=== PATIENT | male | born 1960 | race Caucasian/White ===

== ENCOUNTER 2022-04-01 02:52 | Emergency (ER) | payer SELFPAY ==
[2022-04-01 03:03] VITALS: BP 162/92; PULSE 89; RESP 18; TEMP 37; O2SAT 99; BMI 34.1
[2022-04-01 03:14] LABS: Appearance Urine Cloudy (Clear); Bilirubin Urine Negative (Negative); Blood Urine 1+ (Negative); Color Urine Yellow (Yellow); Glucose Urine Negative (Negative); Ketones Urine Negative (Negative); Leukocyte Esterase Urine 1+ (Negative); Nitrite Urine Negative (Negative); Protein Urine Negative (Negative); Urobilinogen Urine 0.2 (0.2-1.0); pH Urine 6.5 (5.0-8.5)
[2022-04-01 03:19] LABS: Bacteria Urine Moderate; WBC Urine 50-100 (0-5)
[2022-04-01] MEDS: LIDOCAINE 1% 5 ml (pf) 5 ML VIAL 2.1 ML IM (03:42)
[2022-04-01] MEDS: cefTRIAXone 1 GM VIAL IM (03:42)
--- OUTSIDE RECORDS SUMMARY | 2022-04-01 03:49 | XMS_ITS | Clinical Summary ---
:1960 Author Organization [employer] [facility] [employer] [facility] [place] [address] Care Team Providers Name Role Phone Antonio Munoz Primary Care Provider Allergies Active Allergy Reactions Severity Noted Date Comments Adhesive Tape-Silicones Rash 08/31/2002 Medications Medication Sig Dispensed Refills Start Date End Date Status carvediloL (COREG) 3.125 TAKE ONE TABLET 0 1 Active mg tablet BY MOUTH TWICE DAILY WITH FOOD aspirin (ECOTRIN) 81 mg Take 81 mg by 0 Active enteric coated tablet mouth. levothyroxine (SYNTHROID) TAKE ONE TABLET 0 01/24/20 20 Active 75 mcg tablet BY MOUTH ONE TIME DAILY hydroCHLOROthiazide TAKE ONE TABLET 0 04/14/2020 Active (HCTZ) 25 mg tablet BY MOUTH ONE TIME DAILY montelukast (SINGULAIR) TAKE ONE TABLET 0 06/16/2020 Active 10 mg tablet BY MOUTH ONE TIME DAILY IN THE EVENING. sildenafil citrate Take 50-100 mg 0 07/31/2020 Active (VIAGRA) 100 mg tablet by mouth. predniSONE (DELTASONE) 20 Take by mouth: 35 Tablet 0 1 Active mg tabletIndications: 3 tablets each Poison arely day for 7 days. Then, take 2 tablets each day for another 7 days. triamcinolone Apply topically 80 g 0 01/06/2021 Active (ARISTOCORT; KENALOG) 0.1 to affected % creamIndications: area(s) 3 times Poison arely daily. Active Problems No known active problems Social History Tobacco Use Types Packs/Day Years Used Date Never Smoker Smokeless Tobacco: Never Used Alcohol Use Standard Drinks/Week Comments Yes 0 (1 standard drink = 0.6 oz pure alcoho l) Sex Assigned at Date Recorded Not on file Obstetrics History Last Filed Vital Signs Vital Sign Reading Time Taken Comments Blood Pressure 137/88 01/06/2021 1:54 PM CDT Pulse 80 01/06/2021 1:54 PM CDT Temperature 37 ??C (98.6 ??F) 01/06/2021 1:54 PM CDT Respiratory Rate 14 01/06/2021 1:54 PM CDT Oxygen Saturation 96% 01/06/2021 1:54 PM CDT Inhaled Oxygen Concentration - - Weight 92.7 kg (204 lb 4.8 oz) 01/06/2021 3:00 PM CDT Height - - Body Mass Index - - Plan of Treatment Health Maintenance Due Date Last Done Comments COVID-19 vaccine series (#1) 06[birth year]01/1962 Tdap 1972 Depression screening for age 12+ 1973 BMI (ht and wt on same day) for age 18+ 11/30/1979 Hepatitis C screening for age 18-79 11/30/1979 Tetanus booster 1981 Colonoscopy through age 75 2006 Lipids for age 45-75 2006 Zoster (shingles) series for age 50+ (1 of 2) 11/30/2011 Influenza for age 50-64 01/28/2022 Results Not on filefrom Last 3 Months Advance Directives Documents on File Type Date Recorded 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
--- NOTE | 2022-04-01 03:53 | ED_ITS ---
HPI - Male Genitourinary General Chief complaint: Flank Pain Stated complaint: UTI Time Seen by Provider: 04/01/22 03:02 Source: patient Mode of arrival: ambulatory Limitations: no limitations History of Present Illness HPI Narrative: 7-year-old male with a notable prior history of urinary retention requiring chronic intermittent catheterization the presents to the emergency department with left-sided flank pain that started about 2 weeks ago, worse tonight. 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 A few days into things, he started taking an old prescription for ciprofloxacin, completing a 7 day course. His symptoms did initially improve somewhat but now have worsened in the last few days. He does not believe the ciprofloxacin was . His last urinary infection was in the spring. In our records, the last documented urinary infection was 2004, no history resistance per his report. No antibiotic allergies. There is no fever, no abdominal pain. He did try taking a stool softener for a few days, as his constipation will occasionally manic is flank pain. He is having regular bowel movements and his symptoms did not improve. No hematuria. No dyspnea, rashes or other unusual symptoms. Remote history of sepsis secondary to urinary infection, he believes this was in 2002. I do not have those records. Past medical history is notable for hypertension, hypothyroidism and chronic urinary retention. Home medications are levothyroxine, hydrochlorothiazide, carvedilol. No allergies. Socially with no recent pertinent travel or infection exposures. ROS is notable for the flank pain urinary symptoms as described above, otherwise denies times 12 Related Data Home Medications Medication Instructions Recorded Confirmed carvedilol 3.125 mg tablet 3.125 mg PO BID 04/01/22 04/01/22 hydrochlorothiazide 25 mg tablet 25 mg PO DAILY 04/01/22 04/01/22 levothyroxine 75 mcg tablet 75 mcg PO DAILY 04/01/22 04/01/22 Previous Rx's Medication Instructions Recorded cephalexin 500 mg tablet 500 mg PO Q8H #15 tabs 04/01/22 Allergies Allergy/AdvReac Type Severity Reaction Status Date / Time No Known Drug Allergies Allergy Verified 04/01/22 03:05 [facility] Medical History Hypertension Hypothyroidism Neurogenic bladder Surgical History History of prostate surgery Social History Smoking Status: Never smoker Do you use any of these nicotine containing products: None Second hand tobacco smoke exposure: No How often do you have a drink containing alcohol: never How often do you have six or more drinks on one occasion: Never AUDIT-C Alcohol total score: 0 Non-prescribed substance use: denies use Exam Const: Vital Signs, click to edit/add: Vital Signs - 24 hr 04/01/22 03:03 Temperature 98.6 F Pulse Rate [Right Pulse Oximeter] 89 Respiratory Rate 18 Blood Pressure [Ri ght Upper Arm] 162/92 H Pulse Oximetry 99 Oxygen Delivery Me thod Room Air Documenting provider has reviewed patient's vital signs: yes Common normals: no apparent distress and alert General appearance: cooperative Orientation/consciousness: Yes awake HENMT: Common normals: normocephalic Head and scalp: normocephalic Mouth: oral and palatal mucosa normal Throat: posterior oropharynx normal Eye: Common normals: conjunctivae normal and no scleral icterus Conjunctiva: conjunctiva(e) normal Neck & C-Spine: Common normals: full ROM and no lymphadenopathy Resp: Common normals: normal respiratory effort, no use of accessory muscles and clear to auscultation bilaterally Effort & inspection: able to speak in complete sentences Auscultation: clear to auscultation bilaterally Cardio: Common normals: regular rate, regular rhythm, S1 normal heart sound, S2 normal heart sound, no murmurs and peripheral pulses 2+ throughout Rate: regular rate Rhythm: regular rhythm Heart sounds: S1 normal and S2 normal Peripheral pulses: pulses 2+ throughout GI: Common normals: Normal to inspection, nondistended, normoactive bowel sounds present, soft to palpation, no hepatosplenomegaly and no masses Palpation: soft and no hepatosplenomegaly : Common normals: no CVA tenderness Bladder/kidney exam: no CVA tenderness Back & Pelvis: Common normals: no CVA tenderness Neuro: Sensorium/orientation: awake and alert Speech: speech normal Motor exam: no tremor noted and no movement abnormalities noted Psych: Common normals: speech normal Activity/motor behavior: appropriate eye contact Speech: normal speech Mood and affect: euthymic mood Insight: insight good Judgement: judgment good Skin: Common normals: no rashes or lesions noted General skin exam: no rashes or lesions noted Course Vital Signs Vital signs: Initial Vital Signs Temperature 98.6 F 04/01/22 03:03 Temperature Source Temporal Artery Scan 04/01/22 03:03 Pulse Rate 89 04/01/22 03:03 Respiratory Rate 18 04/01/22 03:03 Blood Pressure 162/92 H 04/01/22 03:03 Blood Pressure Mean 115 04/01/22 03:03 Blood Pressure Position Sitting 04/01/22 03:03 Pulse Oximetry 99 04/01/22 03:03 Oxygen Delivery Method 04/01/22 03:03 Vital Signs Temperature 98.6 F 04/01/22 03:03 Pulse Rate 89 04/01/22 03:03 Respiratory Rate 18 04/01/22 03:03 Blood Pressure 162/92 H 04/01/22 03:03 Pulse Oximetry 99 04/01/22 03:03 Oxygen Delivery Method 04/01/22 03:03 Temperature 98.6 F 04/01/22 03:03 Pulse Rate 89 04/01/22 03:03 Respiratory Rate 18 04/01/22 03:03 Blood Pressure 162/92 H 04/01/22 03:03 Pulse Oximetry 99 04/01/22 03:03 Oxygen Delivery Method 04/01/22 03:03 MDM - Male Genitourinary MDM Narrative Medical decision making narrative: Vital signs stable, no signs of sepsis today ache, no fever. Do not recommend additional blood workup. Urinalysis is reviewed in this is suspicious for infection. Likely resistant to ciprofloxacin as he has been on a recent course of this. Stressed the importance of a urinalysis and culture with infections so that we can ensure appropriate antibiotic management and prevent resistant infections for him. He verbalized understanding and agreement. Await culture but empirically treat with Rocephin and transitioning onto oral Keflex. Alarm symptoms reviewed as indications that would warrant ED presentation. Differential diagnosis including pyelonephritis, constipation, urinary infection, STD, diverticulitis. Medical Records Attestation: I reviewed the patient's medical records. Medical records narrative: Prior UA from 2004 Lab Data Attestation: I reviewed the patient's lab results. Labs: Lab Results 04/01/22 Range/Units 03:05 Urine Color Yellow (Yellow) Urine Appearance Cloudy A (Clear) Urine pH 6.5 (5.0-8.5) Ur Specific [place] 1.020 (1.000-1.030) Urine Protein Negative (Negative) Urine Glucose (UA) Negative (Negative) Urine Ketones Negative (Negative) Urine Blood 1+ A (Negative) Urine Nitrite Negative (Negative) Urine Bilirubin Negative (Negative) Urine Urobilinogen 0.2 (0.2-1.0) Ur Leukocyte Esterase 1+ A (Negative) Urine RBC 5-10 A (0-2) Urine WBC 50-100 A (0-5) Ur Squamous Epith Cells None (None-Few) Urine Bacteria Moderate A (None) Discharge Plan Discharge Clinical Impression: Complicated urinary tract infection Patient Disposition: Home, Self-Care Condition: Stable Instructions: Catheter-associated Urinary Tract Infection (ED) Additional Instructions: Your urine is suspicious for infection. I would assume that it is resistant to ciprofloxacin. We will culture the urine and let you know if antibiotic changes need to be made. Continue the remainder of your medications as prescribed. You were given a shot of Rocephin here in the emergency department. The next dose of your antibiotics will be this evening prior to bedtime. I have sent the prescription for Keflex to your local pharmacy. If you are not noting marked improvement in 48 hours, please make a followup appointment with your primary care provider. Activity Level: No Restrictions Discharge Diet: Regular Prescriptions: New cephalexin 500 mg tablet 500 mg PO Q8H Qty: 15 0RF No Action carvedilol 3.125 mg tablet 3.125 mg PO BID Label Comments: TAKE ONE TABLET BY MOUTH TWICE DAILY WITH FOOD hydrochlorothiazide 25 mg tablet 25 mg PO DAILY Label Comments: TAKE ONE TABLET BY MOUTH ONE TIME DAILY levothyroxine 75 mcg tablet 75 mcg PO DAILY Label Comments: TAKE ONE TABLET BY MOUTH ONE TIME DAILY Follow Up/Referrals: Provider,Not a Local [Referring] - Stand Alone Forms: [facility] Info Instructions
[2022-04-01 04:01] VITALS: BP 158/85; PULSE 85; RESP 18; TEMP 36.7; O2SAT 99
== END 2022-04-01 04:02 | disposition home or self-care (01) ==
LOC: ED 03:48
PROVIDERS: Emergency Provider Family Medicine; PCP Physician Assistant
DX: N39.0 Urinary tract infection, site not specified (principal)
CPT/HCPCS: 81001; 87086; 96372; 99282; 99283; 99284; J0696

== ENCOUNTER 2023-01-23 05:07 | Emergency (ER) | payer SELFPAY ==
[2023-01-23 05:15] VITALS: BP 126/87; PULSE 70; RESP 20; TEMP 35.6; O2SAT 99
[2023-01-23 05:32] LABS: Appearance Urine Cloudy (Clear); Bilirubin Urine Negative (Negative); Blood Urine 1+ (Negative); Color Urine Yellow (Yellow); Glucose Urine Negative (Negative); Ketones Urine Negative (Negative); Leukocyte Esterase Urine 2+ (Negative); Nitrite Urine Negative (Negative); Protein Urine Negative (Negative); Urobilinogen Urine 0.2 (0.2-1.0); pH Urine 6.5 (5.0-8.5)
--- NOTE | 2023-01-23 05:33 | ED.NURSE ---
Carlson placed, 1450 cc of urine removed.
[2023-01-23 05:46] LABS: RBC Urine 0-2 (0-2)
--- NOTE | 2023-01-23 05:46 | ED.GENADULT ---
HPI - General Adult General Chief complaint: Urogenital Problems, Male Stated complaint: abdominal pain/unable to urinate Time Seen by Provider: 01/23/23 05:21 History of Present Illness HPI narrative: ast urination was 2100 on . pt with severe abd pain. bladder cancer hx. self caths at home. unable to pass cath this evening. 62-year-old man coming to the emergency department with spouse with concern of inability to urinate and increasing pain. History of neobladder/reconstruction after bladder cancer and history of self catheterization. History of neurogenic bladder. No fevers. Related Data Home Medications Medication Instructions Recorded Confirmed carvedilol 3.125 mg tablet 3.125 mg PO BID 04/01/22 04/01/22 hydrochlorothiazide 25 mg tablet 25 mg PO DAILY 04/01/22 04/01/22 levothyroxine 75 mcg tablet 75 mcg PO DAILY 04/01/22 04/01/22 Previous Rx's Medication Instructions Recorded cephalexin 500 mg tablet 500 mg PO Q8H #15 tabs 04/01/22 Allergies Allergy/AdvReac Type Severity Reaction Status Date / Time No Known Drug Allergies Allergy Verified 04/01/22 03:05 Review of Systems Status of ROS: Reports: 6 or more systems reviewed and unremarkable except as noted in History and below PFSH PFSH Medical History Hypertension Hypothyroidism Neurogenic bladder Surgical History History of prostate surgery ?Z98.890 - Other specified postprocedural states (ICD-10) Social History Smoking Status: Never smoker Do you use any of these nicotine containing products: None Second hand tobacco smoke exposure: No How often do you have a drink containing alcohol: never How often do you have six or more drinks on one occasion: Never AUDIT-C Alcohol total score: 0 Non-prescribed substance use: denies use Exam Narrative: Exam Narrative: Pleasant. Breathing easily. Little uncomfortable. Skin is warm dry. Abdomen is soft somewhat uncomfortable in the low abdomen. Heart in regular rate and rhythm. Extremities are without edema. Const: Vital Signs, click to edit/add: Vital Signs - 24 hr 01/23/23 05:15 Temperature 96.1 F L Pulse Rate [Left P ulse Oximeter] 70 Respiratory Rate 20 Blood Pressure [Ri ght Upper Arm] 126/87 Pulse Oximetry 99 Oxygen Delivery Me thod Room Air Documenting provider has reviewed patient's vital signs: yes Course Vital Signs Vital signs: Initial Vital Signs Temperature 96.1 F L 01/23/23 05:15 Temperature Source Temporal Artery Scan 01/23/23 05:15 Pulse Rate 70 01/23/23 05:15 Pulse Rhythm Regular 01/23/23 05:15 Respiratory Rate 20 01/23/23 05:15 Blood Pressure 126/87 01/23/23 05:15 Blood Pressure Mean 100 01/23/23 05:15 Blood Pressure Position Supine 01/23/23 05:15 Pulse Oximetry 99 01/23/23 05:15 Oxygen Delivery Method Room Air 01/23/23 05:15 Vital Signs Temperature 96.1 F L 01/23/23 05:15 Pulse Rate 70 01/23/23 05:15 Respiratory Rate 20 01/23/23 05:15 Blood Pressure 126/87 01/23/23 05:15 Pulse Oximetry 99 01/23/23 05:15 Oxygen Delivery Method Room Air 01/23/23 05:15 Temperature 96.1 F L 01/23/23 05:15 Pulse Rate 90 01/23/23 06:07 Respiratory Rate 16 01/23/23 06:07 Blood Pressure 120/82 01/23/23 06:07 Pulse Oximetry 99 01/23/23 06:07 Oxygen Delivery Method Room Air 01/23/23 06:07 Medical Decision Making MDM Narrative Medical decision making narrative: Presumably has had some urinary retention contributing to some abdominal discomfort. Initial bladder scan is measuring 400 mL. Cathed for at least 1500. Feels much better. Would wait for urine culture before initiating any antibiotics. See patient discharge plan. Lab Data Lab results reviewed: Yes I reviewed the patient's lab results Labs: Lab Results 01/23/23 Range/Units 05:25 Urine Color Yellow (Yellow) Urine Appearance Cloudy A (Clear) Urine pH 6.5 (5.0-8.5) Ur Specific [place] 1.010 (1.000-1.030) Urine Protein Negative (Negative) Urine Glucose (UA) Negative (Negative) Urine Ketones Negative (Negative) Urine Blood 1+ A (Negative) Urine Nitrite Negative (Negative) Urine Bilirubin Negative (Negative) Urine Urobilinogen 0.2 (0.2-1.0) Ur Leukocyte Esterase 2+ A (Negative) Urine RBC 0-2 (0-2) Urine WBC 10-25 A (0-5) Ur Squamous Epith Cells Few (None-Few) Urine Bacteria Moderate A (None) Discharge Plan Discharge Clinical Impression: Acute urinary retention, Abdominal pain Patient Disposition: Home w/ Parent or Adult Condition: Improved Additional Instructions: I would follow-up on maybe Tuesday or to consider removing this Carlson. Otherwise be seen for increasing abdominal discomfort/blood catheter, fever. Prescriptions: No Action carvedilol 3.125 mg tablet 3.125 mg PO BID Patient Comments: TAKE ONE TABLET BY MOUTH TWICE DAILY WITH FOOD hydrochlorothiazide 25 mg tablet 25 mg PO DAILY Patient Comments: TAKE ONE TABLET BY MOUTH ONE TIME DAILY levothyroxine 75 mcg tablet 75 mcg PO DAILY Patient Comments: TAKE ONE TABLET BY MOUTH ONE TIME DAILY cephalexin 500 mg tablet 500 mg PO Q8H Qty: 15 0RF Follow Up/Referrals: Antonio Munoz PA-C [Primary Care Provider] - Stand Alone Forms: [employer] Info Instructions
[2023-01-23 05:47] LABS: Bacteria Urine Moderate; Squamous Epithelial Cell Urine Few (None-Few)
[2023-01-23 06:07] VITALS: BP 120/82; PULSE 90; RESP 16; O2SAT 99
== END 2023-01-23 06:16 | disposition home or self-care (01) ==
PROVIDERS: Emergency Provider Family Medicine; PCP Physician Assistant
DX: R33.9 Retention of urine, unspecified (principal); R10.9 Unspecified abdominal pain
CPT/HCPCS: 51702; 51798; 81001; 87086; 87186; 99283; 99284